=== PATIENT | female | born 1960 | race African-American/Black ===

== ENCOUNTER 2017-05-23 14:26 | Emergency (ER) | payer BC ==
[~2017-05-23] VITALS: Ht 170.2 cm; Wt 55.0 kg
[2017-05-23 14:28] VITALS: BP 136/68
== END 2017-05-23 16:31 | disposition left against medical advice (07) ==
LOC: ER 14:36 → CANBEDREQ 18:35
DX: R06.02 Shortness of breath (principal); M25.511 Pain in right shoulder; Z88.0 Allergy status to penicillin
CPT/HCPCS: 93005; 99283